=== PATIENT | male | born 1950 | race Caucasian/White ===

== ENCOUNTER 2024-03-23 12:09 | Emergency (ER) | payer MEDICARE, SELFPAY ==
[2024-03-23 12:17] VITALS: BP 156/74
[2024-03-23 12:45] LABS: Urine Albumin Negative (Neg - Trace); Urine Bilirubin Negative (Negative); Urine Character Clear (Clear); Urine Color Yellow; Urine Glucose Negative (Negative); Urine Ketone Negative (Negative); Urine Leukocyte Negative (Negative); Urine Nitrite Negative (Negative); Urine Occult Blood Negative (Negative); Urine Urobilinogen Negative (Neg - 1+)
--- NOTE | 2024-03-23 13:26 | ED.GENMED ---
History of Present Illness
General
Chief Complaint: Back Pain
Source: patient
Exam Limitations: none
Time Seen by Provider: 03/23/24 13:25
Nursing documentation reviewed up to this point in time: agreed with
History of Present Illness
History of Present Illness:
Patient is a 73-year-old male with history atrial fibrillation on Eliquis, hypertension, hyperlipidemia, CAD s/p stents, colon cancer in remission presenting to the emerged part for evaluation of lower back pain. Patient states that he has had pain
in his left lower back/buttock region for the past week. Symptoms were worsening previously although seem to have plateaued a few days ago. He describes a pain in his left buttock region rating around to his left mid thigh. Patient has been
trying Tylenol at home with little improvement. No known inciting trauma or injury. Patient denies any numbness/tingling in lower extremities or weakness. No bowel/bladder incontinence. No groin paresthesia.
Patient denies any fever, chills. No urinary symptoms including hematuria or dysuria. No abdominal pain. No changes in bowel habits. No shortness of breath or chest pain.
Past History
Past History
ED Past Medical History: CAD, Cancer, HTN and Hypercholesterolemia
ED Past Surgical History: Bowel resection
Social History
Tobacco: Former smoker
Alcohol: None
Personal:
Living: with family
Review of Systems
Review of Systems
Allergies reviewed?: Yes
All Other Systems: ROS reviewed and negative except as documented in HPI and ROS
Phy Exam
Physical Exam
Physical Exam:
Vitals: Hypertensive, otherwise vital signs stable. Afebrile
General: Patient is well appearing, no acute distress. Nontoxic-appearing
Skin: Warm and dry, no rashes or lesions
Head: Normocephalic, atraumatic
Eyes: Sclera nonicteric. EOMs intact. No nystagmus.
Throat: Protecting airway
Neck: Normal ROM, no cervical spine tenderness, no meningismus
Cardiac: Regular rate and rhythm, no murmurs. Palpable and equal distal pulses
Pulm: Normal respiratory effort, no wheezes, rales, rhonchi heard on exam.
Abdomen: Abdomen soft. No abdominal tenderness. No CVA tenderness
Back: Mild reproducible tenderness in left lower back near SI joint. No rash, erythema, or ecchymoses. Negative straight leg raise.
Extremities: No evidence of cyanosis or edema. Left lower extremity atraumatic and nontender with full range of motion in all joints. Strength 5 out of 5 in upper and lower extremities. Sensation fully intact
Neuro: AAOx3. Grossly intact.
Psychiatric: Normal affect.
Course
Orders/Labs/Results
Orders:
Orders
03/23/24 12:28
Urinalysis Reflex To Culture Urgent
Date Specimen was Collected: 03/23/24
Time Specimen was Collected: 12:20
03/23/24 13:54
Acetaminophen [Tylenol] 650 mg PO NOW STA
Lidocaine [Lidocaine 4% Patch] 1 patch TOPICAL NOW STA
Apply Lidocaine patch(s) to:: Left lower back/buttock
Lumbar Spine, 2 or 3 View [CR Lumbar Spine 2 Or 3 Views] Urgent
Comment:
Reason For Exam: left low back pain radiating to left thigh
03/23/24 15:43
Oxycodone/Acetaminophen [Percocet 5/325] 1 tablet PO NOW STA
Prednisone [Deltasone] 40 mg PO NOW STA
Vital Signs
Initial and Last Documented VS:
Initial Vital Signs
Temp Pulse Resp BP Pulse Ox
98.2 F 81 16 156/74 98
03/23/24 12:17 03/23/24 12:17 03/23/24 12:17 03/23/24 12:17 03/23/24 12:17
Last Documented Vital Signs
Temp Pulse Resp BP Pulse Ox
98.2 F 81 18 150/70 98
03/23/24 12:17 03/23/24 16:15 03/23/24 16:15 03/23/24 16:15 03/23/24 16:15
MDM/Problems Addressed
Differential Diagnosis Includes:
Not limited to: Sciatica, lumbar strain, zoster, UTI, kidney stone, etc.
MDM/Problems Addressed:
73-year-old male with history as documented presenting with left lower back pain radiating to left thigh. No numbness/tingling, weakness, bowel/bladder incontinence, groin paresthesia. No fever or shortness of breath. Mildly hypertensive,
otherwise vital signs stable. Patient is afebrile. On exam�patient is well-appearing, no apparent distress. He is ambulating with steady gait. He has mildly reproducible tenderness to left lower back near SI joint. Full range of motion left hip
with internal/external rotation. No overlying rash or ecchymoses. Patient is without any neurologic deficits. Exam most consistent with likely musculoskeletal back pain. Low suspicion for infectious source. Do not suspect kidney stone or UTI.
No red flag back pain symptoms concerning for cauda equina. A urinalysis was initiated in triage without any signs of infection or RBCs. Will check lumbar spine x-ray. Will give Tylenol and lidocaine patch. Will reassess
Update: Lumbar spine x-ray without any acute abnormalities. Degenerative changes noted near L5-S1. Ultimately suspect a lumbar radiculopathy. Patient otherwise stable and relatively comfortable. Will initiate course of steroids. Recommend pain
management and primary care follow-up. Very strict return precautions discussed. Case discussed with attending physician.
Chronic conditions affecting care:
Atrial fibrillation on Eliquis, hypertension, CAD
Acute Exacerbation and/or Progression of Chronic Illness:
Acutely hypertensive
*Radiology
Radiology exam reviewed: preliminary read by ED provider and radiology read reviewed
*Pulse Oximetry
Patient hypoxic: no
*EKG
Interpreted by ED Provider?: NA
*Store Specialist Interpretation
Rate: Store Specialist- N/A
*Critical Care Note
Total Time (30-74mins, 75-104mins- exclusive of procedures): Not Applicable
ED Attending Note
-
Portions of this chart may have been created with voice recognition software.� Occasional wrong word or��sound alike� substitutions may have occurred due to the inherent limitations of voice recognition software.
Discharge Plan
Departure
Patient Disposition: Home (Routine Discharge)
Date of Disposition: 03/23/24
Time of Disposition: 15:43
Patient with high blood pressure during this ER visit?: Yes
Condition: Good
Covid-19: Not Applicable
Discharge Problem:
Back pain, Left lumbar radiculopathy
Instructions: Low Back Pain (DC), Radiculopathy (DC), BLOOD PRESSURE
Prescriptions:
New
prednisone 10 mg Tablet
See Rx Instructions .ROUTE .COMPLEX Qty: 30 0RF
Rx Instructions:
Take By Mouth:
40 mg daily x3 days, 30 mg daily x3 days,
20 mg daily x3 days, 10 mg daily x3 days.
oxycodone-acetaminophen 5-325 mg tablet
1 tab PO HSPRN PRN (Reason: Pain) Qty: 7 0RF
No Action
ezetimibe 10 MG tablet
10 mg PO DAILY
nitroglycerin 0.4 MG tablet, sublingual
0.4 mg sublingual [id number] PRN (Reason: pain)
Patient Comments:
pt states he's never taken this med.
rosuvastatin 5 MG tablet
10 mg PO DAILY
fluticasone propionate 1 SPRAY spray,suspension
2 spray intranasal DAILYPRN PRN (Reason: allergies)
lisinopril 20 MG tablet
20 mg PO DAILY 0RF
acetaminophen [Tylenol Extra Strength] 500 MG tablet
1,000 mg PO Q6H Qty: 60 0RF
Eliquis 5 MG tablet
5 mg PO BID Qty: 0 0RF
Patient Comments:
takes once a day
Metamucil Packet
1 packet PO DAILY
aspirin [Baby Aspirin] 81 mg Tablet,Chewable
81 mg PO DAILY
tamsulosin 0.4 mg Capsule
0.4 mg PO DAILY
oxycodone 5 mg tablet
5 mg PO Q6H PRN (Reason: pain) Qty: 30 0RF
Referrals:
NONE,* [Family Provider] - Follow up in 5-7 days
Activity Restrictions/Additional Instructions:
RETURN TO THE EMERGENCY DEPARTMENT WITH ANY FEVERS, CHILLS, SHORTNESS OF BREATH, DIFFICULTY URINATING, LOSS OF BOWEL/BLADDER CONTROL, NUMBNESS/TINGLING IN LOWER EXTREMITIES, WORSENING IN CURRENT SYMPTOMS, OR ANY OTHER CONCERNS
-You came to the emergency department today for evaluation of left lower back pain. I suspect this is likely secondary to lumbar radiculopathy.
-Prescriptions have been sent to your pharmacy. You can take Percocet at night as needed for severe pain. This may cause drowsiness.
-Continue to take Tylenol and use lidocaine patches. Stay well-hydrated.
-Follow-up with your primary care provider for further evaluation/management to ensure that symptoms are improving
Monitor your symptoms closely and return to the emergency department with any acute worsening/new symptoms or any signs of infection
Interventions
Interventions:
*Risk Screen - Suicide Last Done: 03/23/24 12:17
*General Assessment Last Done: 03/23/24 13:15
*Neglect/Abuse Screening Last Done: 03/23/24 12:17
*ED COVID-19 Vaccine History Last Done: 03/23/24 13:15
*Nursing Disposition Last Done: 03/23/24 16:15
ED-Musculoskeletal Assessment Last Done: 03/23/24 13:15
Discharge Date and Time
Discharge Date/Time: 03/23/24 16:16
Print Language: [id number]
[2024-03-23] MEDS: LIDOCAINE 4% PATCH 1 PATCH TOPICAL (14:03)
[2024-03-23] MEDS: TYLENOL 650 MG PO (14:04)
[2024-03-23] MEDS: DELTASONE 40 MG PO (15:52)
[2024-03-23] MEDS: PERCOCET 5/325 1 TABLET PO (15:52)
[2024-03-23 16:15] VITALS: BP 150/70
== END 2024-03-23 16:16 | disposition home or self-care (01) ==
LOC: EMR 12:09
PROVIDERS: EMERGENCY PHYSICIAN Emergency Medicine
DX: M54.50 Low back pain, unspecified (principal); M54.16 Radiculopathy, lumbar region; I48.91 Unspecified atrial fibrillation; I25.10 Atherosclerotic heart disease of native coronary artery without angina pectoris; I10 Essential (primary) hypertension; E78.00 Pure hypercholesterolemia, unspecified; Z79.01 Long term (current) use of anticoagulants; Z85.038 Personal history of other malignant neoplasm of large intestine; Z87.891 Personal history of nicotine dependence; Z95.5 Presence of coronary angioplasty implant and graft
CPT/HCPCS: 99283; 72100; 81003